=== PATIENT | female | born 1975 | race Caucasian/White ===

== ENCOUNTER 2021-02-04 08:18 | Day surgery (SDC) | payer OTHER ==
[2021-02-03 10:41] LABS: Anion Gap 5 mmol/L (6-16); Blood Urea Nitrogen 12 mg/dL (8-24); Bun/Creatinine Ratio 16.3 (12.0-20.0); CO2, Blood 21 mmol/L (21-32); Calcium, Blood 8.6 mg/dL (8.5-10.1); Chloride, Blood 114 mmol/L (98-108); Creatinine, Blood 0.74 mg/dL (0.40-1.00); Glomerular Filtration Rate >60 (60-); Glucose, Blood 100 mg/dL (70-99); Potassium, Blood 3.8 mmol/L (3.5-5.5); Sodium, Blood 140 mmol/L (136-145)
[~2021-02-04] VITALS: Ht 154.9 cm; Wt 81.8 kg
[~2021-02-04 08:18] MED LIST: C COMPLEX1000 M1 PO; FISH OIL 1,2001 EAC1 PO; GABA600 PO; LEVE500 PO; PHENY100ER PO; TOPI100 PO; TOPI25 PO
--- NOTE | 2021-02-04 09:29 | NUR ---
Ambulatory in Day Surgery WITH NIGHAT, WHO WILL BE WAITING IN WAITING RROM WHILE HIS HAS SURGERY. History, Chart, Medications and Allergies reviewed before start of procedure. Lungs clear T/O to Auscultation. Patient confirms NPO status and agrees with scheduled surgery. Pre-Op teaching done. Pt verbalizes understanding.
--- NOTE | 2021-02-04 17:14 | NUR ---
PT REPORTS NAUSEA CONTROLLED AFTER ZOFRAN, PT PRAKASH SMALL AMOUNTS OF FULL LIQUID. PT UP TO BATHROOM X2 VOIDED A FEW DROPS OF PINK TINGED URINE. ISA PAD WITH QUARTER SIZED AREA BLOODY DRAINAGE. ABD INCISIONS CLEAN, DRY, INTACT
--- NOTE | 2021-02-04 19:01 | NUR ---
voided 150 ml blue tinged urine
--- NOTE | 2021-02-05 06:44 | NUR ---
PT IS A/OX3. ABLE TO MAKE HER NEEDS KNOWN. NO EVENTS OVER NIGHT. ABD: 4 LAP SITES, CDI. UMBILUCUS: PUNCTURE SITE, CDI. CBS. ROOM AIR. I/S AT BEDSIDE, REFUSED EDUCATION ON I/S SAYING "I DON'T DO BREATHING EXERCISES." DENIED ANY N/V. WEARING MESH PANTIES W/ISA PADS. SCANT AMT OF DRNG ON ISA PAD. INDEPENDENT WITH USING BATHROOM. VOIDS W/O DIFFICULTY, BLUE URINE. TOLERATNG CL DIET WELL.
[2021-02-05] MEDS ORDERED: ACET325 PO (09:18)
--- NOTE | 2021-02-05 10:31 | NUR ---
DISCHARGE INSTRUCTIONS REVIEWED WITH PATIENT AND HER . PT SPOKE WITH DR SHAW BY PHONE PRIOR TO DISCHARGE. PT AND HER VERBALIZE UNDERSTANDING OF ALL INSTRUCTIONS. PT DISCHARGED TO HOME WITH
--- NOTE | 2021-02-09 07:53 | NUR ---
02/09/21 0753 Alysa Wu VERIFICATIONS: EDIT CHART.
== END 2021-02-05 10:31 | disposition home or self-care (01) ==
LOC: ORSCMMR 08:18 → SURS 08:18 → ORSCMMR 08:19 → ORD 09:45 → SURS 15:31 → ORSCMMR 02-05 10:31
PROVIDERS: Obstetrics & Gynecology
PROC: 0UT94ZZ Resection of Uterus, Percutaneous Endoscopic Approach (ICD-10-PCS; principal; 2021-02-04 09:45)
PROC: 0UB04ZZ Excision of Right Ovary, Percutaneous Endoscopic Approach (ICD-10-PCS; principal; 2021-02-04 09:45)
PROC: 8E0W4CZ Robotic Assisted Procedure of Trunk Region, Percutaneous Endoscopic Approach (ICD-10-PCS; principal; 2021-02-04 09:45)
PROC: 0DNU4ZZ Release Omentum, Percutaneous Endoscopic Approach (ICD-10-PCS; principal; 2021-02-04 09:45)
DX: N92.1 Excessive and frequent menstruation with irregular cycle (principal); D25.9 Leiomyoma of uterus, unspecified; N80.0 Endometriosis of uterus; N94.6 Dysmenorrhea, unspecified; N81.2 Incomplete uterovaginal prolapse; K66.0 Peritoneal adhesions (postprocedural) (postinfection); K21.9 Gastro-esophageal reflux disease without esophagitis; G40.909 Epilepsy, unspecified, not intractable, without status epilepticus; Z79.899 Other long term (current) drug therapy; E66.9 Obesity, unspecified; Z68.34 Body mass index [BMI] 34.0-34.9, adult
CPT/HCPCS: 58570; 58662; 49329; S2900; 36415; 80048; 84703; 86850; 86900; 86901; 88305; 88307; A9270; J0690; J1100; J1885; J2250; J2405; J2704; J2710; J3010; J7120; Q9968